=== PATIENT | female | born 1990 | race Caucasian/White ===

== ENCOUNTER 2016-12-03 01:56 | Outpatient (CLI) | payer OTHER ==
[~2016-12-03] VITALS: Ht 172.7 cm; Wt 79.4 kg
[2016-12-03] VITALS (11 sets, daily range): BP systolic 121–176; BP diastolic 72–102
[~2016-12-03 01:56] MED LIST: NOHOMEMEDS
[2016-12-04] MEDS ORDERED: MOTRIN800 MG PO (03:56)
== END 2016-12-03 05:10 | disposition home or self-care (01) ==
LOC: LDRP-OP 01:56 → 2WEST 01:57 → LDRP-OP 12-31 12:30
DX: O46.93 Antepartum hemorrhage, unspecified, third trimester (principal); Z3A.40 40 weeks gestation of pregnancy
CPT/HCPCS: 59025; G0378

== ENCOUNTER 2016-12-03 13:32 | Inpatient (IN) | payer OTHER ==
[~2016-12-03] VITALS: Ht 172.7 cm; Wt 81.0 kg
[2016-12-03] VITALS (16 sets, daily range): BP systolic 121–162; BP diastolic 71–102
[2016-12-03 17:26] LABS: BASOPHIL COUNT 0.1 K/uL (0-0.1); EOSINOPHIL (%) 0.6 % (0-5); EOSINOPHIL COUNT 0.1 K/uL (0-0.3); HEMATOCRIT 40.3 % (36.0-46.0); IMMATURE GRANULOCYTE (%) 0.8 % (0.0-0.7); IMMATURE GRANULOCYTE COUNT 0.1 K/uL; INSTRUMENT ABS NEUTROPHIL CT 9.9 K/uL; LYMPHOCYTE COUNT 2.4 K/uL (1.0-2.8); MCH 31.3 PG (29.0-34.0); MEAN PLAT.VOLUME 10.3 uM^3 (9.5-12.4); MONOCYTE (%) 7.6 % (3-12); NEUTROPHIL (%) 72.7 % (45-76); NEUTROPHIL COUNT 9.9 K/uL (1.8-6.4); PLATELET COUNT 229 K/uL (156-360); RBC DIS.WIDTH-SD 43.6 % (39-53); RED BLOOD COUNT 4.38 M/uL (3.80-5.20); WHITE BLOOD COUNT 13.6 K/uL (4.1-10.2)
[2016-12-04] VITALS (15 sets, daily range): BP systolic 112–157; BP diastolic 59–101
[2016-12-04] MEDS ORDERED: MOTRIN800 MG PO (03:56)
[2016-12-05 07:38] VITALS: BP 113/76
[2016-12-05 15:02] VITALS: BP 134/77
[2016-12-06 09:30] VITALS: BP 122/70
== END 2016-12-06 14:10 | disposition home or self-care (01) | DRG 775 ==
LOC: LDRP-OP 13:32 → 2WEST 13:33 → LDRP-OP 12-31 05:18
PROVIDERS: Nurse Practitioner
DX: O48.0 Post-term pregnancy (principal); O69.81X0 Labor and delivery complicated by cord around neck, without compression, not applicable or unspecified; Z3A.40 40 weeks gestation of pregnancy; Z37.0 Single live birth
CPT/HCPCS: 59025; 85025; C1755; G0378; J2405; J3010; J7120